=== PATIENT | female | born 1940 | race Two or more races ===

== ENCOUNTER 2021-12-20 21:16 | Inpatient (IN) | payer OTHER ==
[~2021-12-20] VITALS: Ht 162.6 cm; Wt 87.1 kg
[2021-12-20] MEDS ORDERED: NAPRELAN750 MG PO (21:51)
[2021-12-20] MEDS ORDERED: NEXIUM2.5 MG (21:52)
[2021-12-20] MEDS ORDERED: PRILOSEC10 MG PO (21:52)
[2021-12-20] MEDS ORDERED: FARXIGA5 MG PO (21:52)
--- NOTE | 2021-12-20 21:53 | NUR ---
SE RECIBE PTE ALERTA Y ORIENTADA X3. LLEGA EN AMBULANCIA, ACOMPANADA DE UN FAMILIAR. PTE REFIERE MENG CAERSE SALIENDO DE HINOJOSA VERONCIA EN CONDADO. PTE REFIERE DOLOR EN AMBAS RODILLAS Y SE OBSERVA ABRASION EN LA MANO DERECHA. PTE REFIERE NO SABER NOMBRE Y DOSIS DE LIGIA MEDICAMENTOS DIARIOS. SE LM SV Y SE UBICA EN PASILLO DE PACIENTES.
--- NOTE | 2021-12-20 22:15 | NUR ---
SE RECIBE PTE FEMENINA ALERTA Y ORIENTADA X3,ES EVALUADA POR ,SE ORIENTA A PTE SOBRE ORDEN MEDICA,SE ADMINISTRAN MEDICAMENTOS LOS CUALES TOLERA,Y SE NOTIFICA A PARA REALIZAR X RAY,SE MANTIENE PTE EN ESPERA DE REEVALUACION.
== END 2021-12-23 21:42 | disposition home or self-care (01) | DRG 605 ==
LOC: ER 21:16 → SEC-K 12-21 09:22 → SURG 12-21 15:28
PROVIDERS: ADMIT Internal Medicine; ATTEND Internal Medicine
PROC: BR2CZZZ Computerized Tomography (CT Scan) of Pelvis (ICD-10-PCS; 2021-12-20)
PROC: BR29ZZZ Computerized Tomography (CT Scan) of Lumbar Spine (ICD-10-PCS; principal; 2021-12-21)
DX: S70.01XA Contusion of right hip, initial encounter (principal); S13.8XXA Sprain of joints and ligaments of other parts of neck, initial encounter; S30.0XXA Contusion of lower back and pelvis, initial encounter; S60.211A Contusion of right wrist, initial encounter; S80.01XA Contusion of right knee, initial encounter; I10 Essential (primary) hypertension; E11.9 Type 2 diabetes mellitus without complications; Z95.0 Presence of cardiac pacemaker